=== PATIENT | female | born 2000 | race American Indian/Alaskan Native ===

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

== ENCOUNTER 2023-06-04 22:33 | Emergency (ER) | payer MEDICAID ==
[2023-06-04 23:08] LABS: AMPHETAMINES,URINE NEGATIVE (NEGATIVE); BARBITURATES,URINE NEGATIVE (NEGATIVE); BENZODIAZEPINE,URINE NEGATIVE (NEGATIVE); MDMA (ECSTASY), URINE NEGATIVE (NEGATIVE); METHADONE,URINE NEGATIVE (NEGATIVE); METHAMPHETAMINES,URINE NEGATIVE (NEGATIVE); OPIATES,URINE NEGATIVE (NEGATIVE); OXYCODONE,URINE NEGATIVE (NEGATIVE); PHENCYCLIDINE,URINE NEGATIVE (NEGATIVE); TCA,URINE NEGATIVE (NEGATIVE)
[2023-06-04] MEDS ORDERED: Bacitracin Oint 1 GM U/D Packet TOP ONE (23:08)
[2023-06-04] MEDS: Lidocaine 1% 5 ML VIAL INJECT ONE ×3 (23:11→23:53)
[2023-06-04] MEDS: Diphtheria,Pertussis(Acell),Tetanus Vaccine 0.5 ML Syringe IM ONE (23:42)
[2023-06-04] MEDS ORDERED: Acetaminophen 500 MG Tab PO ONE (23:51)
[2023-06-05] MEDS ORDERED: Ondansetron 4 MG Tab.DIS PO ONE (00:09)
[2023-06-05] MEDS: Diphtheria,Pertussis(Acell),Tetanus Vaccine 0.5 ML Syringe IM ONE (00:24)
[2023-06-05 00:27] VITALS: BP 121/74; PULSE 98
== END 2023-06-05 00:22 ==
LOC: DL.ED 22:33
DX: S01.81XA Laceration without foreign body of other part of head, initial encounter (principal); M25.511 Pain in right shoulder; M25.532 Pain in left wrist; F10.920 Alcohol use, unspecified with intoxication, uncomplicated; Z02.89 Encounter for other administrative examinations; Z91.048 Other nonmedicinal substance allergy status; Y04.0XXA Assault by unarmed brawl or fight, initial encounter
CPT/HCPCS: 70450; 70486; 72125; 73030-RT; 73130-LT; 80305-QW; 81025; 90715; 99283; 99285; A9270-GY; J3490